=== PATIENT | male | born 1990 | race Caucasian/White ===

== ENCOUNTER 2019-04-03 12:27 | Emergency (ER) | payer OTHER, SELFPAY ==
[2019-04-03 12:28] VITALS: TEMP 36.8; BMI 58.6
[2019-04-03 12:33] VITALS: BP 181/124; PULSE 86; RESP 14; O2SAT 97
--- NOTE | 2019-04-03 12:42 | ED.VISSUMM ---
- ER Visit Summary Date of Service: 04/03/19 Chief Complaint: Left-sided chest pain History of Present Illness: The patient is a 29 M no seen past medical history. Chest pain no better or worse is been continuous last 2 and half hours. Dyspnea. No hemoptysis. Is not pleuritic. Denies any leg swelling. No hemoptysis. No prior history of DVT or PE. He denies any recent travel, surgery or immobilization. No known cardiac history. Denies any recent exertional dyspnea. Physical Examination: Male no acute distress. Vital signs are stable. Afebrile. He does not look septic or toxic. His initial blood pressure is elevated at 181/124. HEENT exam unremarkable. Neck nontender no lymphadenopathy. Lungs clear to auscultation bilaterally. Heart regular rhythm no murmur. Rate about 85. She has no reproducible tenderness in the left parasternal and left chest wall. There is no ecchymosis or bruising. No subcu air crepitance. If there is causing pain to palpation. There is no redness or warmth. Abdomen is morbidly obese but soft nontender normal bowel sounds no peritoneal signs. He is moving all 4 extremities. Calves are nontender without edema. Equal symmetrical radial pulses. Normal range of motion both upper and lower extremities. Neurovascular intact. Neurologically is awake alert with no focal motor deficits. Test Results: EKG shows a sinus rhythm rate 86 with no signs of [place] or ischemia. No signs of pericarditis. Chest shows no acute abnormality. Normal cardiac silhouette mediastinum. No signs of dissection or pneumothorax. No rib fractures. CBC normal white count 8. Hemoglobin 15. Chemistries normal normal creatinine and gap. Troponin normal and d-dimer less than 0.27. Emergency Department Course and Treatment: Patient undergo a cardiac work-up. Patient was treated with p.o. Motrin. On repeat exam he is feeling much better at 1615 p.m. Current blood pressure is 132/77 is feeling better. Treatment Plan: Ice to chest wall. Motrin for pain and inflammation. Follow-up with a local primary care physician return if worse. Disposition: Discharge Impression: Acute left-sided chest wall pain This note was generated with [employer] dictation software. It may contain incorrect words, spelling, and punctuation that were not noted in review of the chart prior to signing ED Disposition - Plan for ED Patient: Referrals: NOT,DEFINED [NON-STAFF] -
--- NOTE | 2019-04-03 12:45 | RAD_ITS ---
STUDY: X-RAY CHEST REASON FOR EXAM: Male, 29 years old. Dizziness, headache, hypertension, shortness of breath, weakness, confusion TECHNIQUE: Portable chest COMPARISON: None. FINDINGS: The lungs are clear and expanded. Normal cardiomediastinal silhouette, tra and pleural margins. No acute osseous or upper abdominal process. RAD/Chest 1 View (Portable) IMPRESSION: No acute cardiopulmonary process. Electronically Signed: Elder Shabazz MD at 13:51 EDT Tel , Service support ,
--- NOTE | 2019-04-03 12:45 | ED.DCSUM_ITS ---
- ER Visit Summary Date of Service: 04/03/19 Chief Complaint: Left-sided chest pain History of Present Illness: The patient is a 29 M no seen past medical history. Chest pain no better or worse is been continuous last 2 and half hours. Dyspnea. No hemoptysis. Is not pleuritic. Denies any leg swelling. No hemoptysis. No prior history of DVT or PE. He denies any recent travel, surgery or immobilization. No known cardiac history. Denies any recent exertional dyspnea. Physical Examination: Male no acute distress. Vital signs are stable. Afebrile. He does not look septic or toxic. His initial blood pressure is elevated at 181/124. HEENT exam unremarkable. Neck nontender no lymphadenopathy. Lungs clear to auscultation bilaterally. Heart regular rhythm no murmur. Rate about 85. She has no reproducible tenderness in the left parasternal and left chest wall. There is no ecchymosis or bruising. No subcu air crepitance. If there is causing pain to palpation. There is no redness or warmth. Abdomen is morbidly obese but soft nontender normal bowel sounds no peritoneal signs. He is moving all 4 extremities. Calves are nontender without edema. Equal symmetrical radial pulses. Normal range of motion both upper and lower extremities. Neurovascular intact. Neurologically is awake alert with no focal motor deficits. Test Results: EKG shows a sinus rhythm rate 86 with no signs of [place] or ischemia. No signs of pericarditis. Chest shows no acute abnormality. Normal cardiac silhouette mediastinum. No signs of dissection or pneumothorax. No rib fractures. CBC normal white count 8. Hemoglobin 15. Chemistries normal normal creatinine and gap. Troponin normal and d-dimer less than 0.27. Emergency Department Course and Treatment: Patient undergo a cardiac work-up. Patient was treated with p.o. Motrin. On repeat exam he is feeling much better at 1615 p.m. Current blood pressure is 132/77 is feeling better. Treatment Plan: Ice to chest wall. Motrin for pain and inflammation. Follow-up with a local primary care physician return if worse. Disposition: Discharge Impression: Acute left-sided chest wall pain This note was generated with [employer] dictation software. It may contain incorrect words, spelling, and punctuation that were not noted in review of the chart prior to signing ED Disposition - Plan for ED Patient: Referrals: NOT,DEFINED [NON-STAFF] -
--- NOTE | 2019-04-03 12:45 | EKG12_ITS ---
Test Reason : CP Blood Pressure : / mmHG Vent. Rate : 086 BPM Atrial Rate : 086 BPM P-R Int : 170 ms QRS Dur : 102 ms QT Int : 354 ms P-R-T Axes : 042 -09 064 degrees QTc Int : 423 ms Normal sinus rhythm Septal infarct , age undetermined Abnormal ECG Confirmed by TORSTEN STOCK, NAINA ([id number]), offline editor JANIA WOODS ([id number]) on 04/05/2019 1:35:50 PM Referred By: COLLIN Confirmed By:NAINA SARMIENTO MD
[2019-04-03 12:48] VITALS: O2SAT 99
[2019-04-03] MEDS: Ibuprofen 600 MG Tablet PO (12:57)
[2019-04-03 13:00] LABS: Absolute Lymphocyte Count 2.08 X10^3/ul (0.83-4.51); Absolute Neutrophil Count 5.8 X10^3/uL (2.0-7.7); Basophil# 0.03 X10^3/uL; Basophil% 0.3 % (0-1); Eosinophil# 0.16 X10^3/uL; Eosinophils% 1.8 % (0-5); Hematocrit 45.2 % (40-54); Hemoglobin 15.9 g/dl (13.0-16.5); Lymphocyte # 2.08 X10^3/ul (4.0); Lymphocyte % 23.4 % (19-41); Mean Corp Hgb Conc 35.2 g/gl (32-36); Mean Corpuscular Hgb 30.5 pg (27.0-32.0); Mean Corpuscular Volume 86.6 fL (80-94); Mean Platelet Vol. 10.5 fl (6.2-12.0); Monocyte# 0.85 X10^3/uL; Monocyte% 9.6 % (0-10); Neutrophil # 5.77 X10^3/uL (2.7-7.7); Neutrophil % 64.8 % (47-70); Platelet Count 234 K/mm3 (150-450); RBC Distribution Width CV 13.5 % (11.6-14.6); RBC Distribution Width SD 42.1 fl (35.1-43.9); Red Blood Count 5.22 M/mm3 (4.6-6.2); White Blood Count 8.9 K/mm3 (4.4-11.0)
[2019-04-03 13:02] LABS: POSITIVE COUNT NO; POSITIVE DIFFERENTIAL NO; POSITIVE MORPHOLOGY NO
[2019-04-03 13:08] LABS: D-Dimer Quantitative (DVT/PE) < 0.27 FEU/ug/m (0.27-0.49)
[2019-04-03 13:14] LABS: Anion Gap 4 (5-15); BUN 10 mg/dL (7-18); BUN/Creat Ratio 11.7 RATIO (10-20); Chloride 104 mmol/L (98-107); Creatinine, Serum 0.85 mg/dL (0.70-1.30); EST Glomerular Filtration Rate 112 mL/min (>60); Est Glom Filt Rate - Afr Amer 136 mL/min (>60); Estimated Creatinine Clearance 172.55 ml/min; Glucose 96 mg/dL (74-106); Potassium 3.7 mmol/L (3.5-5.1); Sodium Level 138 mmol/L (136-145)
[2019-04-03 14:45] VITALS: BP 129/78; PULSE 51; RESP 17; O2SAT 95
--- NOTE | 2019-04-03 16:20 | DCINST.ED_ITS ---
ED Disposition - Plan for ED Patient: Disposition: Home or Assisted Living Instructions: ED Strain Chest Wall Referrals: Low Lerma MD [STAFF PHYSICIAN] - 3-5 Days if not improving Additional Instructions: All your labs, EKG and chest x-ray were normal. Ice to chest wall. Motrin for pain and inflammation this should progressively improve. If you are feeling worse return to the ER if you not improving follow- up with your doctor as listed.
[2019-04-03 16:37] VITALS: BP 123/79; PULSE 58; RESP 14; O2SAT 100
== END 2019-04-03 16:38 | disposition home or self-care (01) ==
PROVIDERS: Emergency Provider Emergency Medicine
DX: R07.89 Other chest pain (principal); Z72.0 Tobacco use
CPT/HCPCS: 71045; 80048; 84484; 85025; 85379; 93005; 99285; A4216